=== PATIENT | male | born 1995 | race Caucasian/White ===

== ENCOUNTER 2018-11-29 22:07 | Emergency (ER) | payer OTHER ==
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
[2018-11-29 22:46] LABS: BUPRENORPHINE,URINE NEGATIVE (NEGATIVE); MARIJUANA,URINE NEGATIVE (NEGATIVE); METHYLENEDIOXYMETHAMP,UR NEGATIVE (NEGATIVE); PHENCYCLIDINE,URINE NEGATIVE (NEGATIVE)
[2018-11-29 23:03] LABS: CHLORIDE,CL 105 mmol/L (98-107); SODIUM,NA 143 mmol/L (136-145)
[2018-11-29 23:05] LABS: ANION GAP 14.9 mmol/L (10-20)
--- NOTE | 2018-11-30 08:19 | CR ---
[id number] RAD/RAD Chest PA And Lateral EXAM: FRONTAL AND LATERAL CHEST INDICATION: Cough. COMPARISON: None. DISCUSSION: The heart and lungs are normal in appearance. IMPRESSION: 1. Negative exam. Sam Maravilla MD 11/30/18 0818 Thank you for allowing us to participate in the care of your patient.
== END 2018-11-30 00:52 ==
LOC: EEVIPCON 22:07 → VM.ED 22:07
DX: R45.851 Suicidal ideations (principal); F15.90 Other stimulant use, unspecified, uncomplicated
CPT/HCPCS: 36415; 71046; 80053; 80305-QW; 85025; 99284-GF; 99285-25

== ENCOUNTER 2018-12-17 14:02 | Emergency (ER) | payer OTHER ==
[2018-12-17 14:42] LABS: BARBITURATE SCREEN,URINE NEGATIVE (NEGATIVE); BENZODIAZEPINES SCREEN,URINE NEGATIVE (NEGATIVE); EDDP,URINE SCREEN NEGATIVE (NEGATIVE); METHAMPHETAMINE SCREEN, URINE NEGATIVE (NEGATIVE); TCA SCREEN,URINE NEGATIVE (NEGATIVE); THC SCREEN,URINE 50 NG/ML NEGATIVE (NEGATIVE)
[2018-12-17 15:15] LABS: CHLORIDE,CL 106 mmol/L (98-107); SODIUM,NA 141 mmol/L (136-145)
[2018-12-17 15:23] LABS: ANION GAP 13.9 mmol/L (10-20)
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
== END 2018-12-17 17:50 ==
LOC: VM.ED 14:02
DX: R45.851 Suicidal ideations (principal); F17.210 Nicotine dependence, cigarettes, uncomplicated; Z91.5 Personal history of self-harm
CPT/HCPCS: 36415; 80053; 80305; 81001; 83735; 84443; 85025; 99284; 99285; G0480